=== PATIENT | male | born 1930 | race Caucasian/White ===

== ENCOUNTER → 2017-09-07 | Outpatient (CLI) | payer OTHER | LOC: FIMAGING 15:19 | PROVIDERS: ATTEND Family Medicine Sports Medicine | DX: M19.071 Primary osteoarthritis, right ankle and foot (principal); I70.201 Unspecified atherosclerosis of native arteries of extremities, right leg; M25.571 Pain in right ankle and joints of right foot ==

== ENCOUNTER → 2018-06-20 | Outpatient (CLI) | payer OTHER | LOC: FIMAGING 12:01 | PROVIDERS: ATTEND Psychiatry & Neurology Neurology | DX: M21.371 Foot drop, right foot (principal); R94.131 Abnormal electromyogram [EMG]; M51.36 Other intervertebral disc degeneration, lumbar region; M48.061 Spinal stenosis, lumbar region without neurogenic claudication; M51.26 Other intervertebral disc displacement, lumbar region ==